=== PATIENT | male | born 1990 | race African-American/Black ===

== ENCOUNTER 2024-11-06 11:09 | Emergency (ER) | payer MEDICAID ==
[~2024-11-06] VITALS: Ht 188 cm; Wt 118.0 kg
[2024-11-06 11:12] VITALS: O2SAT 100
[2024-11-06 11:45] LABS: BASOPHILS % 0.8 % (0.0-2.0); EOSINOPHILS % 3.5 % (0.0-5.0); HEMATOCRIT. 46.1 % (42.0-52.0); HEMOGLOBIN. 15.2 g/dL (14.0-18.0); LYMPHOCYTES % 40.2 % (20.0-50.0); MEAN PLATELET VOLUME 8.5 fl (7.4-10.4); MONOCYTES % 11.2 % (2.0-8.0); NEUTROPHILS % 44.3 % (40.0-76.0); PLATELET 195 x1000/uL (130-400); RED BLOOD CELL COUNT 4.90 mill/uL (4.7-6.1); RED CELL DISTRIBUTION WIDTH 13.8 % (11.6-14.6)
[2024-11-06 12:03] LABS: CREATININE 1.2 mg/dL (0.6-1.3); UREA NITROGEN BLOOD 13 mg/dL (9-23)
[2024-11-06 12:04] LABS: TROPONIN I HIGH SENSITIVITY 4 ng/L (3.0-53)
[2024-11-06 13:28] VITALS: BP 123/83; PULSE 62; RESP 18; TEMP 37; O2SAT 100
== END 2024-11-06 13:30 | disposition home or self-care (01) ==
LOC: ER 11:09
DX: R07.89 Other chest pain (principal); Z79.899 Other long term (current) drug therapy
CPT/HCPCS: 36415; 71045; 80048; 84484; 85025; 93005; 99285